=== PATIENT | female | born 1995 | race Caucasian/White ===

== ENCOUNTER 2022-05-14 14:40 | Emergency (ER) | payer OTHER, SELFPAY ==
[2022-05-14 14:46] VITALS: BP 118/60; PULSE 97; RESP 18; TEMP 36.2; O2SAT 100; BMI 34.5
--- NOTE | 2022-05-14 15:09 | CRLHL7_ITS ---
For Patients: As a result of the Century Cures Act, medical imaging exams and procedure reports are released immediately into your electronic medical record. You may view this report before your referring provider. If you have questions, please contact your health care provider. INDICATION: Status post fall. Patient on blood thinners. COMPARISON: None available. TECHNIQUE: CT examination of the head was performed with 3 mm thick axial and 2 mm thick coronal and sagittal sections without intravenous contrast. Images were obtained from the vertex of the skull through the skull base, and I examined the images with the brain and bone windows. Please note that all CT scans at this facility use dose modulation, iterative reconstruction, and/or weight-based dosing when appropriate to reduce radiation dose to as low as reasonably achievable. FINDINGS: : The brain is normal in appearance for the patient`s age on today`s study, with no sign of mass lesion, mass effect, hemorrhage, or edema. The ventricles and sulci are normal in appearance for the patient`s age. The visualized portions of the orbits are normal in appearance. The visualized portions of the paranasal sinuses and mastoids are clear. The frontal sinuses are hypoplastic. The osseous structures are normal in their appearance with no sign of abnormality in the skull base or calvarium. IMPRESSION: No sign of closed-head injury. Normal noncontrast CT of the head for the patient`s age. Please note that all CT scans at this facility use dose modulation, iterative reconstruction, and/or weight-based dosing when appropriate to reduce radiation dose to as low as reasonably achievable. Dictated by Ambrocio Alejandro MD @ 05/14/2022 4:02:30 PM (Electronically Signed)
--- NOTE | 2022-05-14 15:11 | ED.GENADULT ---
HPI - General Adult General Date Seen: 05/14/22 Chief complaint: Back Injury/Pain Stated complaint: Fall on Blood Thinners Time Seen by Provider: 05/14/22 14:44 Source: patient History of Present Illness HPI narrative: Patient is a 27-year-old woman who presents after a fall in the shower. She was recently started on Eliquis for DVT in the left leg. She recalls that she was told she should be evaluated after any falls. She says that she has a pinched nerve in her back, but does not think her back was actually injured during the fall. She does say that she thinks she might have hit her head, although she is not sure. She does say that she has headache since her fall, which is moderate in intensity, in the back of her head. She does not have any bruises or swelling on her head. She denies any neck pain. No seizures, vomiting, altered mentation. She says that she and her went online, and after ago will search, decided that she should come in for evaluation. She did not take any medications at home. Related Data Home Medications Medication Instructions Recorded Confirmed apixaban 5 mg tablet (Eliquis) mg 05/14/22 cyanocobalamin (vitamin B-12) mcg 05/14/22 1,000 mcg/mL injection solution hydroxyzine HCl 25 mg tablet mg 05/14/22 methylphenidate HCl 5 mg tablet mg 05/14/22 norethindrone (contraceptive) 0.35 mg 05/14/22 mg tablet (Jencycla) Allergies Allergy/AdvReac Type Severity Reaction Status Date / Time No Known Drug Allergies Allergy Verified 05/14/22 14:52 Review of Systems Status of ROS: Reports: 10 or more systems reviewed and unremarkable except as noted in History and below [facility] Social History Smoking Status: Never smoker How often do you have a drink containing alcohol: never AUDIT-C Alcohol total score: 0 Non-prescribed substance use: denies use Exam Narrative: Exam Narrative: Vital signs as noted below. In general, an alert, well-appearing patient. Conversant, appears comfortable. Head: Normocephalic, atraumatic. No hematoma or abrasions. Eyes: Pupils are equal reactive. Extraocular movements are full. Conjunctivae are normal. ENT: Mucous membranes are moist. Neck: Supple without lymphadenopathy. Nontender to palpation. Heart: Regular rate and rhythm. No murmur or rub. Lungs: Clear bilaterally. No increased work of breathing, crackles or wheezes. Abdomen: Soft and nontender. No organomegaly. Extremities: Well perfused. No edema. No calf tenderness. Pulses intact. Neurologic: Patient is alert and oriented to person and place. Speech is fluent. Face is symmetric. Moves all extremities equally. Affect: Normal. Skin: Warm and dry. Well perfused. Const: Vital Signs, click to edit/add: Vital Signs - 24 hr 05/14/22 14:46 Temperature 97.1 F L Pulse Rate [Pulse Oximeter] 97 Respiratory Rate 18 Blood Pressure [Ri ght Upper Arm] 118/60 Pulse Oximetry 100 Documenting provider has reviewed patient's vital signs: yes Course Course Hospital Course: Overall, I think her presentation is relatively low risk, but given that she is reporting headache, possible head trauma, and is on Eliquis, I do think on balance the best course of action is to get a CT scan of the head. She will have Tylenol 1000 mg for her headache. Patient is feeling improved. CT head by my review is negative for intracranial hemorrhage. Final radiology report is likewise negative. I think it is reasonable to let her go home. Certainly if she has new or worsening symptoms, vomiting, confusion, severe headache, return to the emergency department. Otherwise, anticipate she will improve. Discussed that if this represents concussion, she may continue to have headaches periodically for days to weeks. She mentioned that she may have just had headache because she was crying after she fell. If so, headache may simply be due to crying and may not persist. Vital Signs Vital signs: Initial Vital Signs Temperature 97.1 F L 05/14/22 14:46 Temperature Source Temporal Artery Scan 05/14/22 14:46 Pulse Rate 97 05/14/22 14:46 Respiratory Rate 18 05/14/22 14:46 Blood Pressure 118/60 05/14/22 14:46 Blood Pressure Mean 79 05/14/22 14:46 Blood Pressure Position Supine 05/14/22 14:46 Pulse Oximetry 100 05/14/22 14:46 Oxygen Delivery Method 05/14/22 14:46 Vital Signs Temperature 97.1 F L 05/14/22 14:46 Pulse Rate 97 05/14/22 14:46 Respiratory Rate 18 05/14/22 14:46 Blood Pressure 118/60 05/14/22 14:46 Pulse Oximetry 100 05/14/22 14:46 Temperature 97.1 F L 05/14/22 14:46 Pulse Rate 97 05/14/22 14:46 Respiratory Rate 18 05/14/22 14:46 Blood Pressure 118/60 05/14/22 14:46 Pulse Oximetry 100 05/14/22 14:46 Discharge Plan Discharge Clinical Impression: Fall Patient Disposition: Home, Self-Care Condition: Stable Instructions: Head Injury (ED) Additional Instructions: Tylenol as needed. Return for severe headache, vomiting, or other worsening. Prescriptions: No Action methylphenidate HCl 5 mg tablet 0RF Label Comments: TAKE ONE TABLET BY MOUTH TWICE DAILY cyanocobalamin (vitamin B-12) 1,000 mcg/mL solution 0RF Label Comments: Inject 1 mL (1,000 mcg) SubcutaneousYL every 30 days. For additional refills, please schedule a follow-up appointment for May at [phone]- hydroxyzine HCl 25 mg tablet 0RF Label Comments: TAKE ONE TABLET BY MOUTH EVERY SIX HOURS NEEDED norethindrone (contraceptive) [Jencycla] 0.35 mg tablet 0RF Label Comments: TAKE 1 TABLET (0.35 MG) BY MOUTH ONCE DAILY. Eliquis 5 mg tablet 0RF Stand Alone Forms: MyHealth Info Instructions
[2022-05-14] MEDS: ACETAMINOPHEN 500 MG TABLET 1000 MG PO (15:16)
[2022-05-14 16:45] VITALS: BP 121/68; PULSE 89; RESP 12; O2SAT 100
== END 2022-05-14 17:02 | disposition home or self-care (01) ==
PROVIDERS: Emergency Provider Emergency Medicine; PCP Family Medicine
DX: R51.9 Headache, unspecified (principal); W18.2XXA Fall in (into) shower or empty bathtub, initial encounter
CPT/HCPCS: 70450; 99284; A9270

== ENCOUNTER 2022-09-27 10:45 | Outpatient (RCR) | payer OTHER, SELFPAY ==
[2022-07-27 09:48] LABS: D Dimer Quantitative* < 0.27 ug/ml (0.00-0.50)
[2022-08-01 14:21] LABS: PT PCR Specimen Whole Blood; Prothrombin(F2)G20210A Variant Negative
[2022-09-26 09:44] LABS: D Dimer Quantitative* < 0.27 ug/ml (0.00-0.50)
== END 2022-12-24 23:59 | disposition home or self-care (01) ==
LOC: CCIC 10:45
PROVIDERS: PCP Family Medicine; Visit Provider Internal Medicine Hematology & Oncology
DX: I82.409 Acute embolism and thrombosis of unspecified deep veins of unspecified lower extremity (principal); D68.51 Activated protein C resistance
CPT/HCPCS: 36415; 81240; 85379; 99202; 99204; 99205; 99212; 99213; 99214